=== PATIENT | female | born 1970 | race Caucasian/White ===

== ENCOUNTER 2024-06-23 13:57 | Emergency (ER) | payer OTHER, SELFPAY ==
[~2024-06-23] VITALS: Ht 165.1 cm; Wt 50.0 kg
--- NOTE | 2024-06-23 14:26 | ED.PDOC ---
History of Present Illness HPI Comments 53 y/o F, with a Hx of HLD and HTN, presents, with c/o generalized weakness, slurred speech, nausea, and vomiting, today. Per son, patient has been endorsing on having weakness and multiple nausea and vomiting episodes, intermittently, since 06/20/24, with most recent onset taking place at 1100, while at work, this morning. Son reports patient also developing slurred speech 1 hour prior to ED arrival. She refutes any pertinent/relevant recent events, such as sick contact, travel, or spoiled food intake, along with any prior history of symptoms in the past. Patient denies having any abdominal pain, facial droop, vision changes, fever, chills, or other associated symptoms or modifiers at this time. Time Seen by MD: 14:10 Reviewed Notes: Nurses Notes, Medications, Allergies Allergies: Coded Allergies: NO KNOWN ALLERGIES (Unverified , 06/23/24) Information Source: Patient Mode of Arrival: Ambulatory Severity: Moderate Timing: Days Duration: Since onset Prehospital treatment: None Past Medical History PAST MEDICAL HISTORY: High Lipids, HTN Surgical History: (3x), Hysterectomy (complete ) Surgical History (Other): cosmetic surgery SECURITY INSTALLATION TECHNICIAN History: Denies all SECURITY INSTALLATION TECHNICIAN Hx Family History Family History: Unknown Social History Smoker: Non-Smoker Alcohol: Occasionally Drugs: Denies Drug Use Lives In: Home Constitutional: denies: chills, diaphoresis, fatigue, fever, malaise, sweats, weakness, others EENTM: denies: blurred vision, double vision, ear bleeding, ear discharge, ear drainage, ear pain, ear ringing, eye pain, eye redness, hearing loss, mouth pain, mouth swelling, nasal discharge, nose bleeding, nose congestion, nose pain, photophobia, tearing, throat pain, throat swelling, voice changes, others Respiratory: denies: cough, hemoptysis, orthopnea, SOB at rest, shortness of breath, SOB with excertion, stridor, wheezing, others Cardiovascular: denies: chest pain, dizzy spells, diaphoresis, Dyspnea on exertion, edema, irregular heart beat, left arm pain, lightheadedness, palpitations, PND, syncope, others Gastrointestinal: reports: nausea, vomiting; denies: abdomen distended, abdominal pain, blood streaked bowels, constipated, diarrhea, dysphagia, difficulty swallowing, hematemesis, melena, poor appetite, poor fluid intake, rectal bleeding, rectal pain, others Genitourinary: denies: abnormal vagina bleeding, burning, dyspareunia, dysuria, flank pain, frequency, hematuria, incontinence, pain, , vagina discharge, urgency, others Neurological: reports: speech problems, weakness; denies: dizziness, fainting, headache, left sided numbness, left sided weakness, numbness, paresthesia, pre- existing deficit, right sided numbness, right sided weakness, seizure, tingling, tremors, others Musculoskeletal: denies: back pain, gout, joint pain, joint swelling, muscle pain, muscle stiffness, neck pain, others Integumetry: denies: bruises, change in color, change in hair/nails, dryness, laceration, lesions, lumps, rash, wounds, others Allergic/Immunocompromised: denies: Difficulty Healing, Frequent Infections, Hives, Itching, others Hematologic/Lymphatic: denies: anemia, blood clots, easy bleeding, easy bruising, swollen glands, others Endocrine: denies: excessive hunger, excessive sweating, excessive thirst, excessive urination, flushing, intolerance to cold, intolerance to heat, unexplained weight gain, unexplained weight loss, others Psychiatric: denies: anxiety, bipolar disorder, depression, hopeless, panic disorder, schizophrenia, sleepless, suicidal, others All Other Systems: Reviewed and Negative Physical Exam General Appearance: Moderate Distress HEENT: Normal ENT Inspection, Pharynx Normal, TMs Normal Neck: Full Range of Motion, Non-Tender, Normal, Normal Inspection Respiratory: Chest Non-Tender, Lungs Clear, No Accessory Muscle Use, No Respiratory Distress, Normal Breath Sounds Cardiovascular: No Edema, No JVD, No Murmur, No Gallop, Tachycardia Breast Exam: Deferred Gastrointestinal: No Organomegaly, Non Tender, No Pulsatile Mass, Normal Bowel Sounds, Soft Genitalia: Deferred Pelvic: Deferred Rectal: Deferred Extremities: No calf tenderness, Normal capillary refill, Normal inspection, Normal range of motion, Non-tender, No pedal edema Musculoskeletal : Apperance: Normal Neurologic: Alert, manager cable II-XII nml as Tested, No Motor Deficits, No Sensory Deficits, Other (The patient's seems somewhat confused) Cerebellar Function: Normal Reflexes: Normal Skin: Dry, Normal Color, Warm Lymphatic: No Adenopathy Was a procedure done? Was a procedure done?: No EKG EKG : Pulse Rate (adult): 86 [place]: Normal Cardiac Rhythm: NSR Block: None Hypertrophy: None ST: Normal Differential Dx Considerations may include: viral syndrome, electrolyte imbalance, dehydration, URI, PNA, UTI, CVA, TIA, among others X-Ray, Labs, Meds, VS Vital Signs Date Time Temp Pulse Resp B/P (MAP) Pulse Ox O2 Delivery O2 Flow Rate FiO2 06/23/24 18:00 98.8 78 13 123/84 (97) 96 98.8 06/23/24 16:05 77 14 179/105 (129) 99 06/23/24 16:02 76 22 98 Room Air* 0 21 06/23/24 16:00 77 06/23/24 14:32 86 06/23/24 14:20 86 06/23/24 14:10 97.4 85 18 200/126 (150) 98 97.4 Lab Test 06/23/24 15:06 06/23/24 14:27 06/23/24 14:11 Range/Units Urine Color Yellow Yellow Urine Clarity Ex.turbid Clear Urine pH 5.5 5.0-9.0 Urine Specific [place] 1.028 1.001-1.035 Urine Protein Trace H Negative Urine Ketones 2+ H Negative Urine Blood Trace H Negative /uL Urine Nitrite Negative Negative Urine Bilirubin Negative Negative Urine Urobilinogen Normal Negative mg/dL Urine Leukocyte Esterase Negative Negative /uL Urine RBC 1 0 - 4 /hpf Urine Microscopic WBC 3 0-5 /HPF Urine Squamous Epithelial Cells Few <5 /hpf Urine Amorphous Crystals Few None Seen /hpf Urine Bacteria None seen None Seen /hpf Urine Mucus Few None Seen Urine Glucose Trace Normal mg/dL Urine Opiates Screen Neg NEGATIVE Urine Fentanyl Screen Neg NEGATIVE Urine Barbiturates Screen Neg NEGATIVE Urine Phencyclidine Screen Neg NEGATIVE Urine Amphetamines Screen Neg NEGATIVE Urine Benzodiazepines Screen Neg NEGATIVE Urine Cocaine Screen Neg NEGATIVE Urine Cannabinoids Screen Pos NEGATIVE White Blood Count 10.5 4.4-10.8 10^3/uL Red Blood Count 4.74 4.0-5.20 10^6/uL Hemoglobin 14.4 12.2-16.2 g/dL Hematocrit 42.6 36.0-46.0 % Mean Corpuscular Volume 89.9 80.0-100.0 fL Mean Corpuscular Hemoglobin 30.4 28.0-32.0 pg Mean Corpuscular Hemoglobin Concent 33.9 32.0-36.0 g/dL Red Cell Distribution Width 13.5 11.8-14.3 % Platelet Count 222 140-450 10^3/uL Mean Platelet Volume 8.9 6.9-10.8 fL Neutrophils (%) (Auto) 81.3 H 37.0-80.0 % Lymphocytes (%) (Auto) 15.2 10.0-50.0 % Monocytes (%) (Auto) 3.1 0.0-12.0 % Eosinophils (%) (Auto) 0.1 0.0-7.0 % Basophils (%) (Auto) 0.3 0.0-2.0 % Neutrophils # (Auto) 8.5 1.6-8.6 10 ^3/uL Lymphocytes # (Auto) 1.6 0.4-5.4 10 ^3/uL Monocytes # (Auto) 0.3 0-1.3 10 ^3/uL Eosinophils # (Auto) 0 0-0.8 10 ^3/uL Basophils # (Auto) 0 0-0.2 10 ^3/uL Nucleated Red Blood Cells 0.0 % Sodium Level 137 136-145 mmol/L Potassium Level 3.4 L 3.5-5.1 mmol/L Chloride Level 100 98-107 mmol/L Carbon Dioxide Level 25 20-31 mmol/L Anion Gap 12 5-15 Blood Urea Nitrogen 24 H 9-23 mg/dL Creatinine 0.94 0.550-1.02 mg/dL Glomerular Filtration Rate Calc 73 >90 mL/min BUN/Creatinine Ratio 25.5 H 10.0-20.0 Serum Glucose 157 H 74-106 mg/dL Calcium Level 10.7 H 8.7-10.4 mg/dL Plasma/Serum Blood Alcohol 3.4 <10 mg/dL POC Glucose 155 H 70-106 mg/dl Current Medications Medications (Trade) Dose Ordered Sig/Mihir Route Start Time Stop Time Status Last Admin Ondansetron HCl (Zofran) 4 mg ONCE ONCE IV 06/23/24 15:00 06/23/24 15:39 DC 06/23/24 15:10 Prochlorperazine Edisylate (Compazine Inj) 10 mg ONCE ONCE IV 06/23/24 16:15 06/23/24 16:18 DC 06/23/24 16:23 Pantoprazole Sodium (Protonix) 40 mg ONCE ONCE IV 06/23/24 16:15 06/23/24 16:18 DC 06/23/24 16:23 Sodium Chloride 1,000 ml @ 1,000 mls/hr Q1H ONCE IV 06/23/24 18:00 06/23/24 18:59 DC 06/23/24 18:12 PROCEDURE(s): HWOCT - HEAD WITHOUT CONTRAST IMPRESSION: No acute intracranial abnormality. The patient's CBC is within normal limits The chemistry panel is within normal limits. The patient was urine test is positive for marijuana We did discuss this with the patient and she states that she was around secondhand marijuana at her place of work. The patient also states that she is now feeling somewhat better. The patient was given Compazine 10 mg IV push for the vomiting The patient was given Protonix 40 mg IV push The patient was given another L bolus of normal saline At this time, the patient was being discharged The patient will follow up with the primary care doctor The patient will return to the emergency department's condition worsens. Images Reviewed?: Images reviewed and evaluated by me Time of 1ST Reevaluation: 14:40 Reevaluation 1ST: Unchanged Patient Education/Counseling: Diagnosis, Treatment, Prognosis, Need For Follow Up Family Education/Counseling: Diagnosis, Treatment, Prognosis, Need For Follow Up Departure 1 Departure Time of Disposition: 19:47 Impression: Primary Impression: Dehydration Disposition: 01 HOME / SELF CARE / HOMELESS Condition: Fair Discharged With: Self, Relative Critical Care Note Critical Care Time?: No Stability Stability form required: No Heart Score Heart Score: Heart Score Response (Comments) Value History N/A 0 EKG N/A 0 Age N/A 0 Risk Factors N/A 0 Troponin N/A 0 Total 0 I personally scribed for WALLACE LUNA MD ([email or web address]) on 06/23/24 at 14:26. Electronically submitted by Nate Underwood ([email or web address]). I personally scribed for WALLACE LUNA MD ([email or web address]) on 06/23/24 at 14:32. Electronically submitted by Nate Udnerwood ([email or web address]). I personally scribed for WALLACE LUNA MD ([email or web address]) on 06/23/24 at 18:29. Electronically submitted by Nate Underwood ([email or web address]). I personally scribed for WALLACE LUNA MD ([email or web address]) on 06/23/24 at 19:27. Electronically submitted by Nate Underwood ([email or web address]). WALLACE LUNA MD Jun 23, 2024 14:26
[2024-06-23 14:43] LABS: Basophils # (auto) 0 10 ^3/uL (0-0.2); Basophils % (auto) 0.3 % (0.0-2.0); Eosinophils # (auto) 0 10 ^3/uL (0-0.8); Eosinophils % (auto) 0.1 % (0.0-7.0); Hematocrit 42.6 % (36.0-46.0); Hemoglobin 14.4 g/dL (12.2-16.2); Lymphocytes # (auto) 1.6 10 ^3/uL (0.4-5.4); Lymphocytes % (auto) 15.2 % (10.0-50.0); Mean Corpuscular Hemoglobin 30.4 pg (28.0-32.0); Mean Corpuscular Hgb Conc. 33.9 g/dL (32.0-36.0); Mean Corpuscular Volume 89.9 fL (80.0-100.0); Monocytes # (auto) 0.3 10 ^3/uL (0-1.3); Monocytes % (auto) 3.1 % (0.0-12.0); Neutrophils # (auto) 8.5 10 ^3/uL (1.6-8.6); Neutrophils % (auto) 81.3 % (37.0-80.0); Platelet Count (auto) 222 10^3/uL (140-450); Red Blood Cells 4.74 10^6/uL (4.0-5.20); Red Cell Distribution Width 13.5 % (11.8-14.3); White Blood Cell 10.5 10^3/uL (4.4-10.8)
[2024-06-23 14:49] LABS: Chloride 100 mmol/L (98-107); Sodium 137 mmol/L (136-145)
[2024-06-23 14:50] LABS: Anion Gap 12 (5-15); Carbon Dioxide 25 mmol/L (20-31)
[2024-06-23 14:55] LABS: BUN/Creatinine Ratio 25.5 (10.0-20.0)
[2024-06-23 14:56] LABS: Blood Alcohol 3.4 mg/dL (<10)
[2024-06-23 14:59] LABS: Blood Urea Nitrogen 24 mg/dL (9-23); Calcium 10.7 mg/dL (8.7-10.4); Glucose 157 mg/dL (74-106); Potassium 3.4 mmol/L (3.5-5.1)
[2024-06-23] MEDS: ONDANSETRON HCL 4 MG/2 ML VIAL IV ONE (15:10)
[2024-06-23 15:18] LABS: Urine Bacteria None Seen /hpf (None Seen)
--- NOTE | 2024-06-23 15:27 | DVH ---
EXAM: CT HEAD WITHOUT CONTRAST INDICATION: aloc TECHNIQUE: CT of the head without intravenous contrast. Radiation Dose Information: CT Dose: CTDI volume is 25 mGy. Dose-length product is 250 mGy*cm The dose indicators for CT are the volume Computed Tomography (CT) Dose Index (CTDIvol) and the Dose Length Product (DLP), and are measured in units of mGy and mGy-cm, respectively. These indicators are not patient dose, but values generated from the CT scanner acquisition factors. The report includes radiation exposure data for exposures received during this examination. COMPARISON: None FINDINGS: There is no evidence of acute intracranial hemorrhage, extra-axial collection, mass effect, midline s hift, herniation or hydrocephalus. The ventricles, sulci and cisterns are age appropriate. The rosenthal-white differentiation is intact. Patchy periventricular and subcortical white matter hypoattenuation is nonspecific but may be related to small vessel ischemic disease. The visualized paranasal sinuses and mastoid air cells are clear. The surrounding soft tissues and osseous structures are unremarkable. IMPRESSION: No acute intracranial abnormality.
[2024-06-23 15:29] LABS: Urine Amorphous Crystal FEW /hpf (None Seen); Urine Blood TRACE /uL (Negative); Urine Clarity Ex.Turbid (Clear); Urine Color Yellow (Yellow); Urine Mucus FEW (None Seen); Urine Protein, UAD TRACE (Negative); Urine Specific Gravity 1.028 (1.001-1.035); Urine Squamous Epithelial Cell FEW /hpf (<5); Urine Urobilinogen Normal (Negative); Urine WBC 3 /HPF (0-5); Urine pH 5.5 (5.0-9.0)
[2024-06-23 15:35] LABS: Cannabinoid Screen, Urine Pos (NEGATIVE)
[2024-06-23 15:36] LABS: Amphetamine Screen, Urine Neg (NEGATIVE); Barbiturate Scree,Urine Neg (NEGATIVE); Benzodiazephine Screen, Urine Neg (NEGATIVE); Cocaine Screen, Urine Neg (NEGATIVE); Opiate Scree,Urine Neg (NEGATIVE); Phencyclidine Screen, Urine Neg (NEGATIVE)
[2024-06-23 16:02] VITALS: PULSE 76; RESP 22; O2SAT 98
[2024-06-23] MEDS: PROCHLORPERAZINE EDISYLATE 5 MG/ML 2ML VIAL IV ONE (16:23)
[2024-06-23] MEDS: PANTOPRAZOLE 40 MG/10 ML VIAL INJ IV ONE (16:23)
[2024-06-23 18:00] VITALS: BP 123/84; RESP 13; TEMP 98.8; O2SAT 96
[2024-06-23] MEDS: SODIUM CHLORIDE 0.9% 1,000 ML IV ONE (18:12)
[2024-06-23 20:00] VITALS: PULSE 71
--- NOTE | 2024-06-25 06:48 | ECG ---
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
== END 2024-06-23 20:35 | disposition home or self-care (01) ==
LOC: ER 13:57
DX: E86.0 Dehydration (principal); R53.1 Weakness; I10 Essential (primary) hypertension; E78.5 Hyperlipidemia, unspecified; Z90.710 Acquired absence of both cervix and uterus; Z98.890 Other specified postprocedural states; Z79.899 Other long term (current) drug therapy
CPT/HCPCS: 36415; 70450; 80048; 80307; 80320; 81001; 82947; 85025; 93005; 96361; 96374; 96375; 99285; J0780; J2405; J2470; J7030; 82962